=== PATIENT | female | born 1940 | race Caucasian/White ===

== ENCOUNTER → 2016-07-16 | Outpatient (CLI) | payer OTHER ==
[~2016-07-16] MED LIST: AMITRIPTYLINE H50 MG PO; AMITRYPTYLINE PO; CALCIUM + D 6001 TA1 PO; CENTRUM SILVER PO; COUMADIN PO; COUMADIN3 MG PO; COUMADIN4 MG PO; FISH OIL 1,0001 CAP PO; LOPRESSOR PO; MOTILIUM PO; NORCO 5/325 TAB1 TAB PO; NYSTATIN15 GM OINT EXT; PEPCID40 MG PO; PREMARIN PO; REGLAN PO; REMERON PO; REMERON45 MG PO; SYNTHROID75 MCG PO; TOPROL XL PO; TOPROL XL50 MG PO; ZITHROMAX PO
--- NOTE | ~2016-07-16 | US6 ---
[facility] A Service of [facility] RADIOLOGY TEXT RESULTS PATIENT: ALLY JAY LOCATION: [facility] : 42 UNIT #: [id number] AGE: [address]: Kofi Simmons MD SEX: F ORDER DR: [id number] [facility] [address] [place], [place] [address] [id number] MR#: [id number] Acc #: [id number] NAME: ALLY JAY : 1940 SEX: F STUDY DATE/TIME: 07/16/2016 11:02 UNIT: [facility] ROOM: STUDY DESCRIPTION: US Abdominal Limited Attending Physician: Kofi Simmons M.D. Referring Physician: Kofi Simmons M.D. Ordering Physician: Kofi Simmons M.D. Primary Care Physician: Kofi Simmons M.D. MEDICAL IMAGING REPORT This report is preliminary unless electronic signature is present EXAM Right upper quadrant ultrasound 07/16/2016 HISTORY Abnormally elevated liver enzymes diagnosed 07/13/2016. Borderline diabetes. Cholecystectomy. FINDINGS The liver demonstrates an increase in echotexture with attenuation of the ultrasound beam characteristic of fatty infiltration. No cystic or solid mass lesions were seen in the liver. The intra- and extrahepatic bile ducts are not dilated. The gallbladder is surgically absent as per patient history. The common duct measures 5 mm. The pancreas and right kidney are normal. IMPRESSION 1. Fatty infiltration of the liver. 2. Surgical absence of the gallbladder. Dictated by... Chi Young M.D. THIS IS AN ELECTRONICALLY VERIFIED REPORT Chi Young M.D. at 07/19/2016 12:18 PM KRT/pcl TD: 07/16/2016 21:58 JOB #: [id number] MEDICAL IMAGING REPORT [facility] A Service [facility] RADIOLOGY TEXT RESULTS PATIENT: ALLY JAY LOCATION: [facility] : 42 UNIT #: [id number] AGE: [address]: Kofi Simmons MD SEX: F ORDER DR: Page 1 of 1 COPY
== END | disposition home or self-care (01) ==
LOC: CWCC 10:43
DX: K76.0 Fatty (change of) liver, not elsewhere classified (principal); R74.8 Abnormal levels of other serum enzymes; Z90.49 Acquired absence of other specified parts of digestive tract
CPT/HCPCS: 76705